=== PATIENT | female | born 1970 | race Caucasian/White ===

== ENCOUNTER 2017-05-15 09:02 | Inpatient (IN) | payer BC ==
[~2017-05-15] VITALS: Ht 175.3 cm; Wt 61.2 kg
--- NOTE | ~2017-05-15 | HP ---
Unit #: [id number] #: [id number] Patient: KARY GALEANO [id number] [address] [place], [place] [address] [id number] MR#: [id number] NAME: KARY GALEANO ROOM: 216 Age: 46 Sex: F Admission Date: 05/15/2017 : 1970 Attending Physician: Chiki Sapp III, M.D. HISTORY AND PHYSICAL HISTORY OF PRESENT ILLNESS Ms. Galeano is an otherwise healthy 46-year-old female who went to bed last night in her usual state of health and woke up 12-18 hours ago complaining of upper abdominal pain. She developed nausea and vomiting but also had a normal bowel movement this morning. She has not had any diarrhea, hematemesis, hematochezia, or melena. She denied any fever or chills. Because of the intensity of the pain, she went to [facility] Emergency Room, and the CT scan there showed the possibility of ischemic bowel, as well as a possible hepatic adenoma. The patient has been a long-term oral contraceptive user since age 20. She has never had any prior surgery and again is otherwise healthy. PAST MEDICAL HISTORY Lipoma excision. No abdominal surgery. ALLERGIES No allergies to medication. MEDICATIONS Her only medication is oral contraceptives. FAMILY HISTORY Diabetes, prostate cancer, and atherosclerotic coronary artery disease. 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 She denies the use of tobacco or recreational drugs. She is a social alcohol user. REVIEW OF SYSTEMS No fever, chills, night sweats, hematemesis, hematochezia, or melena. PHYSICAL EXAMINATION VITAL SIGNS: Temperature is 98, pulse 54 and regular, respirations 18, blood pressure 151/96, and room air oxygen saturations are 98%. GENERAL: She is awake, alert, oriented, pleasant in conversation, and obviously in discomfort but not in acute distress. HEENT: Unremarkable. CARDIAC: Regular rhythm. LUNGS: Clear. ABDOMEN: Slightly distended. It is soft. There are no palpable masses, no rebound tenderness, and no rigidity. EXTREMITIES: No clubbing, cyanosis, or edema. NEUROLOGIC: Grossly intact. Unit #: [id number] #: [id number] Patient: KARY GALEANO [facility]: Hemoglobin 14.7 with normal indices, white count 10,100 with 80% segs. No bands are seen. Platelets 288,000. Basic metabolic panel is within normal limits. In particular, serum CO2 is 24, calcium 9.5, albumin 4.4, lipase 24, total bilirubin 0.9, alkaline phosphatase 29, and AST and ALT 29 and 20. Urinalysis is negative. IMAGING: CT scan was reviewed with the radiologist after I examined the patient, and they confirm that there is a high suspicion for ischemic and possibly infarcted small bowel. The lesion in the liver could be consistent with a hepatic adenoma. ASSESSMENT AND PLAN The patient presented to the emergency room with worsening abdominal pain, and CT scan is worrisome for ischemic small bowel. The patient has been adequately hydrated in the emergency room and has been given narcotic pain medication. Her physical examination and hemodynamic status are generally unremarkable, and her laboratories are also essentially within normal limits. Her x-ray however, is very concerning, and given the amount of pain described on initial presentation, we plan on doing exploration and possible bowel resection. With the hepatic mass and long-term oral contraceptive use, she could very well have mesenteric venous thrombosis with significant small bowel ischemia. I discussed exploratory laparotomy and bowel resection with the patient and her family. They understand that a stoma is a possibility and that a second look operation is a possibility. I advised them that she will probably be admitted to intensive care unit postoperatively for observation. They understand the risks, benefits, complications, and high risk nature of this condition and agree to proceed. Dictated by Jareth Yancey/kalpesh TD: 05/15/2017 18:20 JOB #: [id number] HISTORY AND PHYSICAL Page 1 of 1 X Jarvis Link MD HISTORY AND PHYSICAL
--- NOTE | ~2017-05-15 | DS ---
Unit #: [id number] #: [id number] Patient: KARY GALEANO [id number] [facility] [address]. [place], [place] [address] [id number] MR#: [id number] NAME: KARY GALEANO ROOM: 216 Age: 46 Sex: F Admission Date: 05/15/2017 : 1970 Discharge Date: 05/17/2017 Attending Physician: Chiki Sapp III, M.D. DISCHARGE SUMMARY HISTORY AND HOSPITAL COURSE Ms. Galeano was transferred to [facility] from [facility] after she presented with acute abdominal pain and on CT scan was felt to have ischemic small bowel. She was evaluated here and taken to the operating room where on diagnostic laparoscopy there was evidence of small bowel ischemia. It was converted to an open exploratory laparotomy and she was found to have a closed loop obstruction from an adhesive band. With lysis of adhesions, the bowel regained adequate blood flow and no resection was necessary. The rest of her abdominal examination was unremarkable. Both on CT scan and on exploratory laparotomy, she had a mass in the dome of the right lobe of the liver. It was consistent with hepatic adenoma and patient does have a long history of oral contraceptive use. I discussed with the patient further evaluation of this lesion after she has recovered from her exploratory laparotomy. We will follow that up in the office. We did discuss the possible association with oral contraceptives and she will decide whether or not she discontinues oral contraceptives. Otherwise, she is afebrile. Her vital signs are stable. She has regained bowel function, is tolerating a diet. Her abdomen is soft and her wound is healing without complication. The patient will be discharged home in stable condition. Please note, at the time of surgery she had a mild meatal stricture when we tried to put her catheter in. That was dilated and her Buitrago catheter was left for 48 hours to stent this. She was asymptomatic preoperatively, so I doubt there is going to be any problems but she does need to void spontaneously before discharge. The patient was instructed on home care. She is to undergo diet as tolerated. She can ambulate ad breanne and take stairs but no strenuous activity or lifting beyond 10-15 pounds. She can use a laxative if needed. She may shower but no submerge her wound under water as in a tub or a pool. She is to call the office for a followup next week on Sunday. She is to call [phone] for an appointment. Prescription for hydrocodone was left for pain control. The patient understood these instructions and will be discharged home in stable condition. Dictated by... Jareth Yancey TD: 05/18/2017 10:53 Unit #: [id number] #: [id number] Patient: KARY GALEANO JOB #: [id number] DISCHARGE SUMMARY Page 1 of 1 X Jarvis Link MD X DISCHARGE SUMMARY
--- NOTE | ~2017-05-15 | OR ---
Unit #: [id number] #: [id number] Patient: KARY GALEANO [id number] [address] [place], [place] [address] [id number] Cierra MR#: [id number] NAME: KARY GALEANO ROOM: 216 Date of Procedure: 05/15/2017 Admission Date: 05/15/2017 Surgeon: Jravis Link M.D. : 1970 Attending Physician: Chiki Sapp III, M.D. OPERATIVE REPORT PREOPERATIVE DIAGNOSIS Ischemic small bowel. POSTOPERATIVE DIAGNOSES Ischemic small bowel and urethral stricture. PROCEDURES PERFORMED Diagnostic laparoscopy converted to exploratory laparotomy with lysis of adhesions and relief of closed loop obstruction, dilatation of urethral stricture with placement of Buitrago catheter. [employer]IC [employer] MANAGER Chiki Sapp M.D. ANESTHESIA General endotracheal anesthesia. ESTIMATED BLOOD LOSS 30 mL. INDICATIONS FOR PROCEDURE A 46-year-old female, who is otherwise healthy, woke up with severe abdominal pain that progressed and in the emergency room, a CT scan was obtained, which was worrisome for ischemic small bowel. The patient was hemodynamically stable. The patient had a history of long-term oral contraceptive use and on CT scan, also had a liver mass worrisome for hepatic adenoma. Due to these findings, I was concerned she might have diffuse mesenteric ischemia and due to her pain and CT findings, we planned on diagnostic laparoscopy and possible exploratory laparotomy. DESCRIPTION OF PROCEDURE The patient was transported from her hospital room to the operating room, and after induction of general endotracheal anesthesia, nursing staff attempted to place a Buitrago catheter, but could not get the Buitrago to insert into the urethra. I then evaluated the urethra, she had a mild meatal stricture and so a mosquito clamp was used to gently dilate the stricture and place the Buitrago catheter. After that, we got return of urine. She already had an NG tube and had received IV antibiotics preop. She was prepped and draped in usual sterile fashion. A 1 cm infraumbilical incision was made. I dissected down through the soft tissue, exposing the fascia. The fascia was opened. Stay sutures were placed. I then entered the peritoneal cavity. A Kimberly trocar was placed. Pneumoperitoneum was Unit #: [id number] #: [id number] Patient: KARY GALEANO created. Then, the laparoscope was introduced into peritoneal cavity. Throughout the peritoneal cavity, there was murky, serosanguineous appearing fluid and in the right upper quadrant epigastrium, there was a loop of ischemic small bowel. It was difficult to identify the extent of the ischemia. So, the laparoscope and trocar were removed and I converted to a midline exploratory laparotomy. Once I had entered the peritoneal cavity, I reduced the bowel and identified a close loop obstruction due to possible congenital adhesion. The adhesion was released and the bowel was de-torsed and we eviscerated the small bowel and watched the loop. The loop had pulsation in the mesentery and the bowel ischemia progressively dissipated as we gave the bowel time to re-perfuse. The entire small and large bowel were evaluated. Ovaries appeared normal. Uterus appeared normal. Stomach appeared normal. High on the right lobe of the liver medially, there was a palpable mass. Due to the probability of being benign adenoma, I will evaluate that further in the postoperative period. Gallbladder was normal. After we were satisfied that the bowel was viable, we reduced the bowel back into the peritoneal cavity, pulled the omentum over the small bowel and copiously irrigated the peritoneal cavity until the irrigant came back clear. The fascia was then closed with #1 Vicryl interrupted sutures. Once the fascia was closed, I irrigated with saline, then Betadine. The soft tissue was closed with 3-0 Vicryl pop-offs and the skin was closed with 4-0 Monocryl running subcuticular closure and Dermabond skin adhesive. Sponges and needle counts were correct x3. The patient tolerated the procedure well and was transported to recovery in stable condition. Findings and postoperative expectations were discussed with her family. Dictated by... Jareth Yancey/sree TD: 05/16/2017 06:50 JOB #: [id number] OPERATIVE REPORT Page 1 of 1 X Jarvis Link MD PROCEDURE OPERATIVE NOTE
[2017-05-15] MEDS ORDERED: NO MEDICATIONS (12:45)
[2017-05-15] MEDS ORDERED: BIRTH CONTROL PILL PO (13:19)
[2017-05-15] MEDS ORDERED: PROBIOTIC1 EAC1 PO (13:20)
[2017-05-15 15:26] LABS: HEMATOCRIT 44.5 % (35.0-45.0); HEMOGLOBIN 14.9 gm/dL (12.0-16.0); MEAN CORPUSCULAR HEMOGLOBIN 31.9 PG (28-34); MEAN CORPUSCULAR HGB CONC 33.6 g/dL (30-36); MEAN PLATELET VOLUME 8.4 FL (6.5-11.5); RED BLOOD COUNT 4.68 X10e (3.90-5.30); RED CELL DISTRIBUTION WIDTH 13.1 % (11.0-15.5)
[2017-05-15 15:56] LABS: CALCIUM SERUM 9.2 mg/dL (8.4-10.2); GLOM FILT RATE Estimated 68.5 mL/min (>60); POTASSIUM 4.6 mmol/L (3.5-5.1)
[2017-05-16 05:29] LABS: HEMATOCRIT 39.5 % (35.0-45.0); MEAN CELL VOLUME 95.9 FL (83-96); MEAN CORPUSCULAR HEMOGLOBIN 31.7 PG (28-34); MEAN PLATELET VOLUME 9.2 FL (6.5-11.5); RED BLOOD COUNT 4.12 X10e (3.90-5.30); RED CELL DISTRIBUTION WIDTH 13.3 % (11.0-15.5)
[2017-05-16 06:00] LABS: CALCIUM SERUM 8.9 mg/dL (8.4-10.2); GLOM FILT RATE Estimated 68.5 mL/min (>60); MAGNESIUM 1.7 mg/dL (1.6-3.0); PHOSPHOROUS 3.6 mg/dL (2.5-4.6); POTASSIUM 4.4 mmol/L (3.5-5.1)
[2017-05-17] MEDS ORDERED: LORTAB 7.5-3251 EACH PO (09:54)
== END 2017-05-17 11:24 | disposition home or self-care (01) | DRG 336 ==
LOC: C2A 09:02 → UNDOADMIN 09:02 → C2A 09:05
PROVIDERS: Specialist
PROC: 0T7D3ZZ Dilation of Urethra, Percutaneous Approach (ICD-10-PCS; 2017-05-15)
PROC: 0DN80ZZ Release Small Intestine, Open Approach (ICD-10-PCS; principal; 2017-05-15 16:00)
PROC: 0WJP4ZZ Inspection of Gastrointestinal Tract, Percutaneous Endoscopic Approach (ICD-10-PCS; 2017-05-15 16:00)
DX: K55.9 Vascular disorder of intestine, unspecified (principal); Q43.3 Congenital malformations of intestinal fixation; D13.4 Benign neoplasm of liver; Z79.3 Long term (current) use of hormonal contraceptives; Z83.3 Family history of diabetes mellitus; Z80.42 Family history of malignant neoplasm of prostate; Z82.49 Family history of ischemic heart disease and other diseases of the circulatory system
CPT/HCPCS: 80048; 83605; 83735; 84100; 85027; 86850; 86900; 86901; 94760; C9113; J0131; J0330; J1100; J1170; J1650; J1885; J2175; J2250; J2270; J2405; J2543; J2550; J2710; J2765; J3010